=== PATIENT | male | born 1945 | race Caucasian/White ===

== ENCOUNTER 2017-08-19 08:56 | Day surgery (SDC) | payer MEDICARE, BC ==
[2017-08-17 16:19] LABS: BASOPHILS # (AUTO) 0.1 X10'3 (0-0.2); BASOPHILS % (AUTO) 0.8 % (0-1); EOSINOPHILS # (AUTO) 0.5 X10'3 (0-0.9); EOSINOPHILS % (AUTO) 5.4 % (0-6); LYMPHOCYTES # (AUTO) 2.8 X10'3 (1.1-4.8); LYMPHOCYTES % (AUTO) 28.9 % (21-51); MEAN CORPUSCULAR HEMOGLOBIN 34.1 PG (27.0-31.0); MEAN CORPUSCULAR HGB CONC 33.9 % (33.0-36.5); MEAN CORPUSCULAR VOLUME 100.4 FL (78-98); MEAN PLATELET VOLUME 9.8 FL (7.4-10.4); MONOCYTES # (AUTO) 0.8 X10'3 (0-0.9); MONOCYTES % (AUTO) 8.7 % (2-12); NEUTROPHILS # (AUTO) 5.4 X10'3 (1.8-7.7); NEUTROPHILS % (AUTO) 56.2 % (42-75); PRE OP HEMATOCRIT 49.4 % (42.0-52.0); PRE OP HEMOGLOBIN 16.8 g/dL (14.0-17.9); PRE OP PLATELET COUNT 221 X10'3 (140-440); RED BLOOD COUNT 4.92 X10'6 (4.70-6.10); RED CELL DISTRIBUTION WIDTH 14.3 % (11.5-14.5)
[2017-08-17 16:35] LABS: PRE OP PROTIME 10.4 SECONDS (9.0-12.0)
[2017-08-17 16:36] LABS: ALBUMIN 3.7 G/DL (3.4-5.0); ALBUMIN/GLOBULIN RATIO 1.1 (1.1-1.5); ALKALINE PHOSPHATASE 86 IU/L (46-116); BLOOD UREA NITROGEN 24 MG/DL (7-18); BUN/CREATININE RATIO 21.4 (5.4-32.0); CALCIUM 10.2 MG/DL (8.5-10.1); CHLORIDE 104 MMOL/L (99-107); CREATININE 1.12 MG/DL (0.60-1.10); PRE OP ANION GAP 12 (8-16); PRE OP AST 95 U/L (10-37); PRE OP BILIRUB, TOTAL 0.5 MG/DL (0.0-1.0); PRE OP GLUCOSE 112 MG/DL (70-104); PRE OP SODIUM 142 MMOL/L (135-145); TOTAL PROTEIN 7.1 G/DL (6.4-8.2); eGFR 65 ML/MIN
[2017-08-17 16:38] LABS: PRE OP ALT 146 U/L (30-65)
[~2017-08-19] VITALS: Ht 182.9 cm; Wt 128.4 kg
[~2017-08-19 08:56] MED LIST: ALIR75PE SQ; ALLO300T9 PO; ASPI-1265 PO; BUPIVAcaine/PF 2.5 mg/ml (0.25%) 30ml vial ONE; CALC-787 PO; CHLO25TA2 PO; CHOL10002 PO; CYAN-19 PO; DIO160T PO; DOCUMENT DATE & TIME OF BETA-BLOCKER PO ONE; EZET10TA14 PO; FISH12002 PO; FLAX100032 PO; LEVO100T PO; METF500T7 PO; METO100T7 PO; MULT-38 PO; PSYL1PAC9 PO; SAXA5TAB PO; ceFAZolin 2gm in dextrose, iso 100 ML IV ONE; famotidine 20mg tablet PO ONE; ringers solution, lacted 1,000 ML IV SCH
[2017-08-19 09:30] VITALS: BP 141/63
[2017-08-19] MEDS ORDERED: epiNEPHrine 1 mg/ml inj ONE (11:01)
[2017-08-19] MEDS ORDERED: BUPIVAcaine/PF 2.5 mg/ml (0.25%) 30ml vial ONE (11:01)
[2017-08-19] MEDS ORDERED: LIDOcaine 1% 30ml preserv. free vial ONE (11:21)
[2017-08-19] MEDS ORDERED: midazolam 2 mg/2 ml injection ONE (11:25)
[2017-08-19] MEDS ORDERED: fentaNYL/PF 50MCG/1 ML 2ML syringe ONE (11:25)
[2017-08-19] MEDS ORDERED: atropine 0.4 mg/ml 20ml vial ONE (11:46)
[2017-08-19] MEDS ORDERED: glycopyrrolate 0.2mg/ml inj ONE (11:46)
[2017-08-19] MEDS ORDERED: ringers solution, lacted 1,000 ML IV SCH (12:06)
[2017-08-19 12:10] VITALS: BP 137/103
[2017-08-19] MEDS ORDERED: morphine 4 MG/ML inj SYRINge IV PRN (12:10)
[2017-08-19] MEDS ORDERED: ondansetron/PF 4mg/2ml inj IV PRN (12:10)
[2017-08-19 12:20] VITALS: BP 139/86
[2017-08-19 12:30] VITALS: BP 134/74
== END 2017-08-19 12:40 | disposition home or self-care (01) ==
LOC: PAS 08:56
PROVIDERS: ATTEND Orthopaedic Surgery Hand Surgery
DX: M65.341 Trigger finger, right ring finger (principal); M65.342 Trigger finger, left ring finger; M65.88 Other synovitis and tenosynovitis, other site; I10 Essential (primary) hypertension; M19.012 Primary osteoarthritis, left shoulder; M16.12 Unilateral primary osteoarthritis, left hip; M17.12 Unilateral primary osteoarthritis, left knee; E11.9 Type 2 diabetes mellitus without complications; E66.9 Obesity, unspecified; Z79.84 Long term (current) use of oral hypoglycemic drugs; Z79.82 Long term (current) use of aspirin; Z98.84 Bariatric surgery status; Z72.89 Other problems related to lifestyle; Z95.1 Presence of aortocoronary bypass graft; Z79.01 Long term (current) use of anticoagulants; Z68.38 Body mass index [BMI] 38.0-38.9, adult; Z98.890 Other specified postprocedural states; Z79.899 Other long term (current) drug therapy
CPT/HCPCS: 26055; 36415; 71046; 80053; 82948; 83036; 85025; 85610; 85730; 93005; A6222; A6449; J0171; J0461; J0690; J2250; J3010; J3490; J7120